=== PATIENT | male | born 1950 | race Caucasian/White ===

== ENCOUNTER 2021-10-15 20:49 | Inpatient (IN) ==
[2021-10-15 21:50] LABS: Basophils # 0.1 10*3/uL (0.0-0.2); Basophils % 0.4 % (0.0-0.8); Eosinophils # 0.1 10*3/uL (0.0-0.87); Eosinophils % 0.8 % (0.00-10.9); Hematocrit 31.4 VOL% (42.0-52.0); Immature Granulocytes % 0.4 %; Immature Granulocytes Absolute 0.05 #; Lymphocytes # 1.4 10*3/uL (1.4-4.0); Mean Corpuscular HGB Conc 31.8 GM/DL (32-36); Mean Corpuscular Volume 91.8 FL (87-102); Mean Platelet Volume 8.8 FL (9.6-12.0); Neutrophils % 74.4 % (38.7-73.9); Platelet Count 385 T/CUMM (130-400); Red Blood Count 3.42 MC/CUMM (3.8-5.5); Red Cell Distribution Width 13.9 % (9.3-17.3); White Blood Count 11.6 T/CUMM (4-12)
[2021-10-15] MEDS ORDERED: LORazepam 2 MG/1 ML VIAL ONE (22:02)
[2021-10-15 22:07] LABS: Albumin 3.4 G/DL (3.4-5.0); Bilirubin,Total 0.6 MG/DL (0.20-1.00); Osmolality,Calculated 312.4 MOS/KG (273-304); Potassium 5.2 MMOL/L (3.5-5.1); Total Protein 7.6 G/DL (6.4-8.2)
[2021-10-15] MEDS ORDERED: LORazepam 2 MG/1 ML VIAL IV STA (22:11)
[2021-10-15] MEDS ORDERED: SODIUM CHLORIDE 0.9% 1,000 ML IV STA (22:22)
[2021-10-15 23:25] LABS: Bacteria,Urine Occasional /HPF (Few); Bilirubin,Urine Negative (Negative); Blood, Urine Small mg/dL (Negative); Glucose,Urine (UA) Negative (Negative); Ketones,Urine Negative (Negative); Nitrite,Urine Negative (Negative); Protein,Urine Negative; RBC,Urine 8 /HPF (0-4); Urine Appearance CLEAR (Clear); Urine Color Yellow (Yellow); Urine Urobilinogen < 2.0 EU/DL (0.2-1.0)
[2021-10-16] MEDS ORDERED: ACETAMINOPHEN 325 MG TABLET PO PRN (00:41)
[2021-10-16] MEDS ORDERED: hydrALAZINE 20 MG/1 ML VIAL IV PRN (00:41)
[2021-10-16] MEDS ORDERED: DEXTROSE 50% 25 GM/50 ML SYRINGE IV PRN (00:41)
[2021-10-16] MEDS ORDERED: GLUCAGON 1 MG VIAL IM PRN (00:41)
[2021-10-16] MEDS ORDERED: ONDANSETRON 4 MG/2 ML VIAL IV PRN (00:41)
[2021-10-16] MEDS ORDERED: ALUMINUM/MAGNES/SIMETH MAX STR 30 ML UDCUP PO PRN (00:49)
[2021-10-16] MEDS ORDERED: ZALEPLON 5 MG CAPSULE PO PRN (00:49)
[2021-10-16] MEDS: LORazepam 2 MG/1 ML VIAL IV PRN ×4 (02:08→20:22)
[2021-10-16] MEDS: SODIUM CHLORIDE 0.45% 1,000 ML IV SCH ×3 (03:18→22:30)
[2021-10-16 03:46] LABS: Basophils % 0.4 % (0.0-0.8); Eosinophils # 0.1 10*3/uL (0.0-0.87); Eosinophils % 0.8 % (0.00-10.9); Hematocrit 29.8 VOL% (42.0-52.0); Hemoglobin 9.9 GM/DL (14.0-18.0); Immature Granulocytes % 0.5 %; Immature Granulocytes Absolute 0.05 #; Lymphocytes # 1.7 10*3/uL (1.4-4.0); Lymphocytes % 16.1 % (21.2-54.2); Mean Corpuscular HGB Conc 33.2 GM/DL (32-36); Mean Corpuscular Volume 89.2 FL (87-102); Mean Platelet Volume 8.6 FL (9.6-12.0); Monocytes % 11.1 % (1.7-12.7); Neutrophils % 71.1 % (38.7-73.9); Platelet Count 381 T/CUMM (130-400); Red Blood Count 3.34 MC/CUMM (3.8-5.5); Red Cell Distribution Width 13.7 % (9.3-17.3); White Blood Count 10.5 T/CUMM (4-12)
[2021-10-16 04:06] LABS: Calcium 8.9 MG/DL (8.5-10.1); Osmolality,Calculated 309.4 MOS/KG (273-304); Potassium 4.4 MMOL/L (3.5-5.1)
[2021-10-16] MEDS: PANTOPRAZOLE 40 MG TABLET PO SCH (09:45)
[2021-10-16] MEDS: GABAPENTIN 100 MG CAPSULE PO SCH ×2 (09:45→22:30)
[2021-10-16] MEDS: CIPROFLOXACIN 500 MG TABLET PO SCH (09:45)
[2021-10-16] MEDS: OLANZapine 5 MG TABLET PO SCH ×2 (17:06→22:30)
[2021-10-16] MEDS ORDERED: TAMSULOSIN 0.4 MG CAPSULE PO SCH (21:00)
[2021-10-16] MEDS: TAMSULOSIN 0.4 MG CAPSULE PO SCH (22:29)
[2021-10-16] MEDS: ENOXAPARIN 30 MG/0.3 ML SYRINGE SUBCUT SCH (22:30)
[2021-10-17] MEDS: CIPROFLOXACIN 500 MG TABLET PO SCH (05:29)
[2021-10-17 06:41] LABS: Basophils # 0.1 10*3/uL (0.0-0.2); Basophils % 0.4 % (0.0-0.8); Eosinophils # 0.2 10*3/uL (0.0-0.87); Eosinophils % 1.8 % (0.00-10.9); Hematocrit 35.2 VOL% (42.0-52.0); Hemoglobin 11.2 GM/DL (14.0-18.0); Immature Granulocytes % 0.4 %; Immature Granulocytes Absolute 0.05 #; Lymphocytes % 16.3 % (21.2-54.2); Mean Corpuscular HGB Conc 31.8 GM/DL (32-36); Mean Corpuscular Volume 91.4 FL (87-102); Mean Platelet Volume 9.2 FL (9.6-12.0); Monocytes % 8.7 % (1.7-12.7); Neutrophils % 72.4 % (38.7-73.9); Platelet Count 417 T/CUMM (130-400); Red Blood Count 3.85 MC/CUMM (3.8-5.5); Red Cell Distribution Width 13.6 % (9.3-17.3)
[2021-10-17 07:07] LABS: % Iron Saturation 13.8 % (18-50); Calcium 9.4 MG/DL (8.5-10.1); Ferritin 403.3 ng/mL (26-388); Osmolality,Calculated 295.7 MOS/KG (273-304); Potassium 4.1 MMOL/L (3.5-5.1)
[2021-10-17] MEDS: SODIUM CHLORIDE 0.45% 1,000 ML IV SCH (09:53)
[2021-10-17] MEDS: TAMSULOSIN 0.4 MG CAPSULE PO SCH ×2 (10:59→22:29)
[2021-10-17] MEDS: PANTOPRAZOLE 40 MG TABLET PO SCH (10:59)
[2021-10-17] MEDS: GABAPENTIN 100 MG CAPSULE PO SCH (11:00)
[2021-10-17 15:52] LABS: Folate 16.47 NG/ML (5.38-24.0)
[2021-10-17] MEDS: LORazepam 2 MG/1 ML VIAL IV PRN (19:21)
[2021-10-17] MEDS: ENOXAPARIN 30 MG/0.3 ML SYRINGE SUBCUT SCH (22:29)
[2021-10-18] MEDS: SODIUM CHLORIDE 0.45% 1,000 ML IV SCH ×2 (04:53)
[2021-10-18] MEDS: CIPROFLOXACIN 500 MG TABLET PO SCH (04:53)
[2021-10-18] MEDS: TAMSULOSIN 0.4 MG CAPSULE PO SCH ×2 (04:54→09:49)
[2021-10-18] MEDS: LORazepam 2 MG/1 ML VIAL IV PRN (05:21)
[2021-10-18 07:41] VITALS: BP 134/101
[2021-10-18] MEDS ORDERED: FERROUS SULFATE 325 MG TABLET PO SCH (09:00)
[2021-10-18] MEDS: PANTOPRAZOLE 40 MG TABLET PO SCH (09:50)
== END 2021-10-18 10:46 | DRG 683 ==
LOC: EDBD → EDUNIT# → N.ED 20:49 → N.EDINP 10-16 00:41 → SUATTDRO 10-16 00:41 → N.5E 10-16 12:20
PROVIDERS: ADMIT Internal Medicine; ATTEND Internal Medicine